=== PATIENT | female | born 1965 | race Caucasian/White ===

== ENCOUNTER 2017-12-07 12:57 | Outpatient (CLI) | payer BC ==
--- NOTE | 2017-12-07 13:16 | RAD ---
TWO VIEW CHEST: Date: 12-07-17 Provided Clinical History: Dyspnea. FINDINGS: Cardiac and mediastinal silhouette is within normal limits. Lungs appear clear. No pleural fluid or p neumothorax is apparent. IMPRESSION: No evidence for acute cardiopulmonary process. POS: [facility]
== END 2017-12-07 12:58 | disposition home or self-care (01) ==
LOC: RAD 12:57
PROVIDERS: ATTEND Internal Medicine Critical Care Medicine
DX: R06.00 Dyspnea, unspecified (principal)
CPT/HCPCS: 71046

== ENCOUNTER 2018-05-21 10:26 | Outpatient (CLI) | payer OTHER | END 2018-05-21 10:27 | disposition home or self-care (01) | LOC: BICRAD 10:26 | PROVIDERS: ATTEND Internal Medicine | DX: Z02.71 Encounter for disability determination (principal); M47.896 Other spondylosis, lumbar region; M47.892 Other spondylosis, cervical region; Z98.1 Arthrodesis status | CPT/HCPCS: 72040; 72100 ==

== ENCOUNTER 2018-12-11 15:18 | Outpatient (CLI) | payer OTHER ==
--- NOTE | 2018-12-11 16:11 | RAD ---
RIGHT HIP TWO VIEWS: History: Back and right hip pain. FINDINGS: Mild osteophytosis and joint space narrowing. Femoral head contour is maintained. No acute fracture, dislocation, or aggressive osseous erosions. IMPRESSION: Very mild osteoarthritic changes right hip. POS: [facility]
== END 2018-12-11 15:19 | disposition home or self-care (01) ==
LOC: TBSIIMAG 15:18
PROVIDERS: ATTEND Neurological Surgery
DX: M54.5 Low back pain (principal); M16.11 Unilateral primary osteoarthritis, right hip

== ENCOUNTER 2023-05-18 10:12 | Outpatient (CLI) | payer MEDICARE | END 2023-05-18 10:13 | disposition home or self-care (01) | LOC: BICCT 10:12 | PROVIDERS: ATTEND Urology | DX: N28.9 Disorder of kidney and ureter, unspecified (principal); Z90.49 Acquired absence of other specified parts of digestive tract | CPT/HCPCS: 74178 ==